=== PATIENT | female | born 1990 | race American Indian/Alaskan Native ===

== ENCOUNTER 2017-03-11 15:11 | Emergency (ER) | payer SELFPAY ==
--- NOTE | 2017-03-11 18:03 | Emergency Department Report ---
Chief Complaint: Syncope Stated Complaint: fainting spells, dizziness,nausea, neck pain Time Seen by Provider: 03/11/17 18:03 - HPI History of Present Illness: This is a 26-year-old female here complaining the dizziness and nausea since this morning. She last menstrual period was 02/21/2017. Denies any diarrhea or abdominal pain. Denies any vaginal discharge or bleeding. Patient states she had passed out twice but she said that she just felt faint this. She has a history of asthma and anxiety. She denies pain. Denies any blurred vision. Denies any headache. Patient is also complaining of severe neck pain but denies any fever or chills. - ROS Review of Systems: All systems are negative unless stated in HPI above - Exam Vital Signs: Vital Signs 03/11/17 16:44 Temperature 98 F Pulse Rate 62 Respiratory 16 Rate Blood Pressure 107/71 O2 Sat by Pulse 100 Oximetry Physical Exam: Gen.: This is a 26-year-old female well-nourished well-developed in no acute distress and nontoxic in appearance. Heart : S1, S2, regular rate rhythm negative murmur. Mini neurological exam: GCS of 15, patient alert and oriented 3, gait is normal. Speech is clear and fluid and no facial drooping. MSE screening note: Focused history and physical exam performed. Due to findings the following was ordered:see mdm ED Disposition for MSE Condition: Stable
[2017-03-11 18:58] LABS: Basophils % (Auto) 1.1 % (0.0-1.8); Eosinophils % (Auto) 1.2 % (0.0-4.3); Hematocrit 36.9 % (30.3-42.9); Hemoglobin 12.2 gm/dl (10.1-14.3); Mean Corpuscular HGB Conc 33 % (30-34); Mean Corpuscular Hemoglobin 28 pg (28-32); Mean Corpuscular Volume 85 fl (79-97); Platelet Count 245 K/mm3 (140-440); Red Blood Count 4.34 M/mm3 (3.65-5.03); Red Cell Distribution Width 13.5 % (13.2-15.2); White Blood Count 6.6 K/mm3 (4.5-11.0)
[2017-03-11 18:59] LABS: Creatine Kinase MB 1.5 ng/mL (0.0-4.0)
[2017-03-11 19:02] LABS: Alanine Aminotransferase 12 units/L (7-56); Albumin 4.7 g/dL (3.9-5); Albumin/Globulin Ratio 1.4 %; Alkaline Phosphatase 51 units/L (35-129); Anion Gap 18 mmol/L; BUN/Creatinine Ratio 17; Blood Urea Nitrogen 10 mg/dL (7-17); Calcium 9.2 mg/dL (8.4-10.2); Carbon Dioxide 24 mmol/L (22-30); Chloride 97.3 mmol/L (98-107); Creatine Kinase 189 units/L (30-135); Glucose 88 mg/dL (65-100); Potassium 4.2 mmol/L (3.6-5.0); Sodium 135 mmol/L (137-145); Total Protein 8.1 g/dL (6.3-8.2)
[2017-03-11 19:05] LABS: INR 1.01 (0.87-1.13)
--- NOTE | 2017-03-11 19:57 | Cat Scan Report ---
FINAL REPORT PROCEDURE: CT head without contrast. TECHNIQUE: Computerized tomography of the head was performed without contrast material. HISTORY: Syncope, head injury. COMPARISON: No prior studies are available for comparison. FINDINGS: There is motion artifact on a few of the images. The ventricles are normal in size. The kilpatrick matter and white matter appear normal. There are no mass lesions. There is no intracranial hemorrhage. The calvarium appears intact. The mastoid air cells and paranasal sinuses are clear as far as visualized. IMPRESSION: Normal study.
[2017-03-11 23:31] VITALS: BP 111/56
== END 2017-03-12 06:43 | disposition left against medical advice (07) ==
LOC: ED 15:11
DX: R42 Dizziness and giddiness (principal); R11.0 Nausea; M54.2 Cervicalgia; Z53.21 Procedure and treatment not carried out due to patient leaving prior to being seen by health care provider
CPT/HCPCS: 36415; 70450; 80053; 82550; 82553; 83735; 84484; 84703; 85025; 85610; 93005; 93010